=== PATIENT | male | born 1960 | race Caucasian/White ===

== ENCOUNTER 2021-11-26 14:45 | Emergency (ER) | payer OTHER ==
[~2021-11-26] VITALS: Ht 172.7 cm; Wt 79.4 kg
[~2021-11-26 14:45] MED LIST: Bisoprolol-Hct1 EAC2 PO; KELP150 MC1; MSM1000 MG; Minocycline HC100 M1 PO; PRAV20 PO; TRIA80TC
[2021-11-26] MEDS ORDERED: METFORMIN HCL500 M3 PO (15:31)
[2021-11-26] MEDS ORDERED: AMLODIPINE BESYL5 MG PO (15:31)
[2021-11-26] MEDS ORDERED: CYMBALTA30 M2 PO (15:31)
[2021-11-26] MEDS ORDERED: EPIPEN0.3 MG/0.3 IM ×2 (15:32→15:48)
[2021-11-26] MEDS ORDERED: Prednisone20 MG PO (15:48)
== END 2021-11-26 15:52 | disposition home or self-care (01) ==
LOC: ER 14:45
DX: T63.441A Toxic effect of venom of bees, accidental (unintentional), initial encounter (principal); R06.02 Shortness of breath; L50.0 Allergic urticaria; I10 Essential (primary) hypertension; E78.5 Hyperlipidemia, unspecified; E11.9 Type 2 diabetes mellitus without complications; Z91.038 Other insect allergy status; Z79.899 Other long term (current) drug therapy; Z79.84 Long term (current) use of oral hypoglycemic drugs; Y92.9 Unspecified place or not applicable
CPT/HCPCS: A9270; J7512

== ENCOUNTER → 2025-01-28 | Outpatient (CLI) | payer OTHER ==
[~2025-01-28] MED LIST changes: +AMLODIPINE BESYL5 MG PO; +CYMBALTA30 M2 PO; +EPIPEN0.3 MG/0.3 IM; +JARDIANCE10 MG; +METFORMIN HCL500 M3 PO; +Prednisone20 MG PO
[2025-01-28 13:31] LABS: BASOPHILS ABSOLUTE AUTO 0.02 K/mm3 (0.00-0.23); BASOPHILS PERCENT AUTO 0 % (0-2); EOSINOPHILS ABSOLUTE AUTO 0.09 K/mm3 (0.00-0.68); EOSINOPHILS PERCENT AUTO 2 % (0-6); Hematocrit 43.4 % (37.0-53.0); Hemoglobin 15.4 g/dL (13.5-17.5); IMMATURE GRAN ABSOLUTE AUTO 0.01 K/mm3 (0.00-0.10); IMMATURE GRAN PERCENT AUTO 0 % (0-1); LYMPHOCYTES ABSOLUTE AUTO 2.06 K/mm3 (0.84-5.20); LYMPHOCYTES PERCENT AUTO 40 % (21-46); MONOCYTES ABSOLUTE AUTO 0.27 K/mm3 (0.16-1.47); MONOCYTES PERCENT AUTO 5 % (4-13); Mean Corpuscular HGB Conc 35.5 g/dL (31.5-36.5); Mean Corpuscular Volume 96 fL (80-100); NEUTROPHILS ABSOLUTE AUTO 2.67 K/mm3 (1.96-9.15); NEUTROPHILS PERCENT AUTO 52 % (41-73); NRBC ABSOLUTE 0.00 K/mm3 (0.00-0.02); NRBC Auto 0.0 /100 WBC (0.0-0.2); Platelet Count 189 K/mm3 (150-400); RDW Coefficient Variation 12.5 % (11.7-14.2); RDW Standard Deviation 43.8 fL (35.1-46.3)
[2025-01-28 16:46] LABS: Alanine Aminotransfer (ALT/SGP 46 U/L (12-78); Albumin, Blood 4.4 g/dL (3.4-5.0); Albumin/Globulin Ratio 1.3 (0.8-1.8); Anion Gap 10 mmol/L (3-11); Aspartate Aminotrans (AST/SGOT 32 U/L (12-37); Bilirubin, Total 0.6 mg/dL (0.1-1.0); Blood Urea Nitrogen 14 mg/dL (8-24); CHOL/HDL RATIO 4.4; CO2, Blood 27 mmol/L (21-32); Calcium, Blood 9.2 mg/dL (8.5-10.1); Chloride, Blood 101 mmol/L (98-108); Cholesterol 167 mg/dL (50-200); Creatinine, Blood 0.46 mg/dL (0.60-1.20); Globulin, Blood 3.5 g/dL (2.2-4.0); Glucose, Blood 152 mg/dL (70-99); HDL Cholesterol 38 mg/dL (>39); LDL/HDL RATIO 1.6; Low Density Lipoprotein Chol 61 mg/dL (0-110); Potassium, Blood 3.9 mmol/L (3.5-5.5); Prostate Specific Antigen 0.334 ng/mL (0.000-4.000); Sodium, Blood 134 mmol/L (136-145); Total Protein, Blood 7.9 g/dL (6.4-8.2); Triglycerides 338 mg/dL (30-160); Very Low Density Lipoprot Chol 67 mg/dL (6-32)
== END ==
LOC: LAB SHORT 12:50 → LAB 12:50
PROVIDERS: Family Medicine
DX: E11.9 Type 2 diabetes mellitus without complications (principal); I10 Essential (primary) hypertension; N42.9 Disorder of prostate, unspecified
CPT/HCPCS: 80053; 80061; 83036; 84153; 85025